=== PATIENT | female | born 1955 | race Caucasian/White ===

== ENCOUNTER 2019-07-24 04:24 | Inpatient (IN) | payer BC, MEDICAID ==
[~2019-07-24] VITALS: Ht 167.6 cm; Wt 99.8 kg
[2019-07-24] MEDS ORDERED: ONDANSETRON HCL/PF 4 MG/2 ML VIAL IVP ONE (04:30)
[2019-07-24] MEDS ORDERED: IV NS 0.9% 1,000 ML BAG IV ONE ×3 (04:30→10:30)
--- NOTE | 2019-07-24 04:30 | NUR ---
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 PT STATED THAT SHE DIDN'T "FEEL WELL ALL DAY". PT'S RESP ARE EVEN AND UNLABORED. PT APPEARS TIRED AND IS PALE WITH FLUSHED CHEEKS. PT IS ON THE MONITOR AND CONTINUOUS PULSE OX.
[2019-07-24] MEDS ORDERED: ONDANSETRON HCL/PF 4 MG/2 ML VIAL ONE ×2 (04:33→09:29)
--- NOTE | 2019-07-24 04:35 | NUR ---
BLOOD FLOW IS TOO SLOW FOR DRAW FROM IV SITE. LAB CALLED FOR BLOOD DRAW.
--- NOTE | 2019-07-24 04:35 | NUR ---
20G IV STARTED IN LT HAND
--- NOTE | 2019-07-24 05:13 | NUR ---
DESIREE BOTTOM CAGER, ARRIVED TO TAKE PT TO CT. PT TO GO TO CT ONCE BLOOD HAS BEEN DRAWN.
--- NOTE | 2019-07-24 05:13 | NUR ---
THERAPY COORDINATOR IS AT THE BEDSIDE FOR BLOOD DRAW.
[2019-07-24] MEDS ORDERED: METOCLOPRAMIDE HCL 10 MG/2 ML VIAL ONE (05:17)
[2019-07-24 05:19] LABS: CALCIUM, SERUM 9.1 mg/dL (8.5-10.1); CARBON DIOXIDE 28 mmol/L (21-32); CHLORIDE 105 mmol/L (98-107); CREATININE 0.9 mg/dL (0.6-1.3); GLUCOSE 104 mg/dL (74-106); SODIUM SERUM 141 mmol/L (136-145); UREA NITROGEN, BLOOD 19 mg/dL (7-18)
[2019-07-24 05:26] LABS: ALANINE AMINOTRANSFERASE 24 U/L (12-78); ALBUMIN 3.2 g/dL (3.4-5.0); ALKALINE PHOSPHATASE 97 U/L (46-116); ASPARTATE AMINOTRANSFERASE 16 U/L (15-37); BILIRUBIN,DIRECT 0.1 mg/dL (0.0-0.2); BILIRUBIN,TOTAL 0.5 mg/dL (0.2-1.0); LIPASE 117 U/L (73-393); TOTAL PROTEIN, SERUM 6.3 g/dL (6.4-8.2)
--- NOTE | 2019-07-24 05:26 | NUR ---
FUNDRAISING CONSULTANT IS NOT ABLE TO DRAW THE BLOOD AT THIS TIME. RADIOLOGY WAS CALLED AND PT WILL GO TO CT.
[2019-07-24] MEDS ORDERED: METOCLOPRAMIDE HCL 10 MG/2 ML VIAL IV ONE (05:30)
--- NOTE | 2019-07-24 05:30 | NUR ---
PT LEFT FOR CT.
--- NOTE | 2019-07-24 05:37 | NUR ---
PT RETURNED FROM CT.
--- NOTE | 2019-07-24 05:40 | NUR ---
TRIED TO DRAW BLOOD. WAS ONLY ABLE TO OBTAIN A RED AND YELLOW TOP.
[2019-07-24 05:52] LABS: BASOPHILS % (AUTO) 0.2 % (0.0-2.0); EOSINOPHILS % (AUTO) 0.5 % (0.0-6.0); HEMATOCRIT 43 % (33-45); HEMOGLOBIN 13.6 g/dL (11.5-14.8); LYMPHOCYTES # (AUTO) 0.8 /CMM (0.8-4.8); LYMPHOCYTES % (AUTO) 6.1 % (20.0-44.0); MEAN CORPUSCULAR HGB CONC 32 g/dl (31.0-36.0); MEAN CORPUSCULAR VOLUME 89 fL (82-100); MONOCYTES # (AUTO) 0.5 /CMM (0.1-1.30); MONOCYTES % (AUTO) 3.9 % (2.0-12.0); NEUTROPHILS # (AUTO) 12.2 /CMM (1.8-8.9); NEUTROPHILS % (AUTO) 89.3 % (43.0-81.0); PLATELET COUNT (AUTO) 272 /CMM (150-450); RED BLOOD CELL COUNT(AUTO) 4.85 MIL/uL (4.0-5.2); WHITE BLOOD COUNT (AUTO) 13.6 K/uL (4.3-11.0)
--- NOTE | 2019-07-24 05:52 | NUR ---
PT AMBULATED TO THE BATHROOM WITH A SLOW STEADY GAIT. PT WILL TRY AND GIVE A URINE SAMPLE. PT STATED THAT SHE IS HAVING DIARRHEA.
--- NOTE | 2019-07-24 05:55 | NUR ---
PT WAS UNABLE TO GIVE A URINE SAMPLE. PT ONLY HAD DIARRHEA. PT AMBULATED BACK TO ER 3 AND WAS RECONNECTED TO THE MONITOR AND CONTINUOUS PULSE OX.
--- NOTE | 2019-07-24 05:57 | NUR ---
BLOOD DRAW ATTEMPT DONE AND BLUE TOP ACQUIRED. SAMPLE SENT TO LAB. NO FURTHER DRAW NEEDED.
--- NOTE | 2019-07-24 06:00 | NUR ---
PT C/O FEELING NAUSEOUS. PT STARTED TO VOMIT. APPROX 250 ML EMESIS NOTED IN EMESIS BAG. PT IS CONTINUALLY APPOLOGIZING FOR VOMITTING. PT STATED THAT SHE FEELS MISERABLE. PT IS ON THE MONITOR AND CONTINUOUS PULSE OX.
[2019-07-24] MEDS ORDERED: LORAZEPAM INJ 2 MG/ML VIAL ONE (06:03)
--- NOTE | 2019-07-24 06:04 | NUR ---
PT REC'D ATIVAN ORDERED.
--- NOTE | 2019-07-24 06:22 | NUR ---
DR CHRISTIANSON IS AT THE BEDSIDE SPEAKING TO THE PT.
--- NOTE | 2019-07-24 06:26 | NUR ---
MD WAS AT PT'S BEDSIDE. RECEIVED VERBAL ORDER TO GIVEN ANOTHER LITER OF NS BOLUS X 1. NOTED AND CARRIED OUT
[2019-07-24] MEDS ORDERED: LORAZEPAM INJ 2 MG/ML VIAL IV ONE (06:30)
--- NOTE | 2019-07-24 07:02 | NUR ---
TRIED TO SEE IF PT COULD GIVE A URINE SAMPLE, BUT PT WAS UNABLE. PT TRIED TO SIT UP IN BED AND FELT LIGHTHEADED. PT IS C/O BACK PAIN WITH THE POSITION THAT SHE IS LYING IN ON THE GURNEY. PT WAS ADJUSTED IN BED. PT REFUSED AN IN AND OUT CATH. MADE AWARE.
--- NOTE | 2019-07-24 07:20 | NUR ---
REPORT TO WILDER CASTANEDA FOR J[facility].
--- NOTE | 2019-07-24 07:58 | NUR ---
pt still c/o being dizzy. unable to provide urine sample. dr barragan aware.
[2019-07-24 08:33] LABS: APPEARANCE,URINE Clear (CLEAR); BACTERIA,URINE None seen /HPF (None Seen); BILIRUBIN,URINE Negative (NEGATIVE); BLOOD, URINE Trace-intact Ery/uL (NEGATIVE); COLOR,URINE Yellow (YELLOW); KETONES,URINE Negative (NEGATIVE); LEUKOCYTE ESTERASE ,URINE Negative (NEGATIVE); NITRITE, URINE Negative (NEGATIVE); PH,URINE 5.5 (5.0-8.0); PROTEIN,URINE Negative (NEGATIVE); RBC,URINE 0-2 /HPF (0-2); SQUAMOUS EPITHELIAL CELL,UR Few /HPF (None Seen); UGLUCOSE Negative (NEGATIVE); UROBILINOGEN,URINE 0.2 EU/dL (0.2); WBC,URINE 0-2 /HPF (0-3)
--- NOTE | 2019-07-24 09:34 | NUR ---
dr barragan back at bedside talking to patient and family about plan of care. pt provided w/ juice, zofran 4mg given ivp per ermd verbal order.
[2019-07-24] MEDS ORDERED: ONDANSETRON HCL/PF - ER 4 MG/2 ML VIAL IV ONE (10:00)
--- NOTE | 2019-07-24 10:25 | NUR ---
CALLED NURSING SUP FOR TELE BED.
[2019-07-24] MEDS ORDERED: IBUP-1955 PO (10:42)
[2019-07-24] MEDS ORDERED: PRED5TAB PO (10:42)
[2019-07-24] MEDS ORDERED: OMEP20CA15 PO (10:42)
--- NOTE | 2019-07-24 10:43 | NUR ---
NURSING SUP GAVE TELE BED [id number].
--- NOTE | 2019-07-24 10:44 | NUR ---
PAGED [facility].
--- NOTE | 2019-07-24 10:56 | NUR ---
report given to alonzo hodge. awaiting transfer to floor.
[2019-07-24] MEDS ORDERED: MAGNESIUM HYDROXIDE 30 ML UDC PO PRN (11:00)
[2019-07-24] MEDS ORDERED: MAG HYDROX/AL HYDROX/SIMETH 30 ML UDC PO PRN (11:00)
[2019-07-24] MEDS ORDERED: ACETAMINOPHEN 325 MG TABLET PO PRN (11:00)
[2019-07-24] MEDS ORDERED: ONDANSETRON HCL/PF 4 MG/2 ML VIAL IVP PRN (11:00)
[2019-07-24] MEDS ORDERED: MORPHINE SULFATE INJ 2 MG/ML DISP.SYRIN IV PRN (11:00)
[2019-07-24] MEDS ORDERED: Z GUARD REMEDY 2 OZ OINT TP PRN (11:00)
--- NOTE | 2019-07-24 11:05 | NUR ---
M/S RN NOTES PATIENT ARRIVED TO THE UNIT WITH SON AT BEDSIDE. PATIENT ALERT AND ORIENTED X4, REPORT RECEIVED FROM TONYA. PATIENT IN NO RESPIRATORY DISTRESS, NO C/O PAIN AT THIS TIME. PATIENT COMPLAINING OF NAUSEA. PATIENT HAD EPISODE OF DIARRHEA. PATIENT CLEANED AND DRY. SKIN ASSESSED, NO SKIN BREAKDOWN. PATIENT'S IV ON THE LEFT HAND #20G, NS INFUSING AT 100ML/HR. PATIENT'S NEEDS ATTENDED, BED ON LOWEST LOCKED POSITION, CALL LIGHT WITHIN REACH, WILL CONTINUE TO MONITOR.
[2019-07-24] MEDS: IV NS 0.9% 1,000 ML IV SCH (11:34)
[2019-07-24 14:00] VITALS: BP 127/76
[2019-07-24 16:26] VITALS: BP 129/72
--- NOTE | 2019-07-24 17:00 | NUR ---
M/S RN NOTES TERE FROM LAB REPORTED CRITICAL VALUE, LACTIC ACID 3.1, NOTIFIED MD, AWAITING FOR ORDERS. ALSO PATIENT WITH EPISODE OF LOOSE STOOL X2. ALSO NOTIFIED .
--- NOTE | 2019-07-24 19:30 | NUR ---
M/S RN NOTES PATIENT AWAKE IN BED, FAMILY AT BEDSIDE. NO RESPIRATORY DISTRESS, NO C/O PAIN AT THIS TIME. NO C/O OF NAUSEA/VOMITING. PATIENT'S IV OF NS INFUSING AT 100ML/HR. PATIENT'S NEEDS ATTENDED, BED ON LOWEST LOCKED POSITION, CALL LIGHT WITHIN REACH. WILL ENDORSE TO ONCOMING NURSE.
--- NOTE | 2019-07-24 19:58 | NUR ---
RECEIVED A CRITICAL LACTIC ACID RESULT=2.0. INFORMED DR CAO, NO ORDERS MADE.
[2019-07-24 20:00] VITALS: BP 113/64
[2019-07-25] MEDS: IV NS 0.9% 1,000 ML IV SCH ×2 (03:03→07:00)
--- NOTE | 2019-07-25 06:23 | NUR ---
MS RN CLOSING NOTES: PATIENT IS RESTING IN BED, A/O X4. NO SOB NOTED. AMBULATORY. NO COMPLAIN OF PAIN. NO BM DURING THE SHIFT. NO N/V NOTED. RESTED THROUGHOUT THE NIGHT. CALL LIGHT WITHIN REACH. BED IN LOWEST AND LOCKED POSITION. VITALS STABLE.
[2019-07-25 07:06] LABS: BASOPHILS % (AUTO) 0.4 % (0.0-2.0); EOSINOPHILS % (AUTO) 0.9 % (0.0-6.0); HEMATOCRIT 38 % (33-45); HEMOGLOBIN 12.7 g/dL (11.5-14.8); MEAN CORPUSCULAR HGB CONC 33 g/dl (31.0-36.0); MEAN CORPUSCULAR VOLUME 87 fL (82-100); MONOCYTES # (AUTO) 0.5 /CMM (0.1-1.30); NEUTROPHILS # (AUTO) 3.5 /CMM (1.8-8.9); NEUTROPHILS % (AUTO) 69.7 % (43.0-81.0); PLATELET COUNT (AUTO) 244 /CMM (150-450); RED BLOOD CELL COUNT(AUTO) 4.39 MIL/uL (4.0-5.2); WHITE BLOOD COUNT (AUTO) 5.1 K/uL (4.3-11.0)
[2019-07-25 07:32] LABS: CALCIUM, SERUM 8.1 mg/dL (8.5-10.1); CREATININE 0.9 mg/dL (0.6-1.3); MAGNESIUM 1.9 mg/dL (1.8-2.4); PHOSPHORUS 2.4 mg/dL (2.5-4.9); POTASSIUM 3.7 mmol/L (3.5-5.1)
[2019-07-25 08:00] VITALS: BP_SYST 123
--- NOTE | 2019-07-25 08:00 | NUR ---
MS RN OPENING NOTES Received Patient awake and resting in bed. A/O x 4. Patient in stable condition. Breathing even and unlabored on room air with no respiratory distress. Denies pain. No signs and symptoms of pain. 20g PIV on left hand, clean, intact, patent, and flushing well with NS infusing at 100ml/hr. Safety precautions in place. Bed locked and set to lowest position with side rails x 2 up. All needs rendered at this time. Call light within reach. Will continue to monitor.
[2019-07-25] MEDS ORDERED: K PHOS NEUTRAL 250 MG TABLET PO ONE (09:00)
--- NOTE | 2019-07-25 11:41 | NUR ---
MS CONSULTING NETWORKING ENGINEER NOTES Patient discharged for home at this time. A/O x 4. VS stable with no acute distress. Breathing even and unlabored on room air with no respiratory distress. Denies pain. Skin intact. Medication reconciliation and discharge orders reviewed and explained to Patient and son. Patient and son verbalized understanding. All belongings with Patient. Patient will follow up with primary MD in 1 week. Escorted Patient to the lobby for safety. Patient picked up by sonWesley.
== END 2019-07-25 11:40 | disposition home or self-care (01) | DRG 392 ==
LOC: ER 04:25 → TELE 10:51 → MED 11:15
PROVIDERS: ADMIT Internal Medicine; ATTEND Nurse Practitioner Acute Care
DX: A08.4 Viral intestinal infection, unspecified (principal); E44.1 Mild protein-calorie malnutrition; E87.2 Acidosis; F41.9 Anxiety disorder, unspecified; K21.9 Gastro-esophageal reflux disease without esophagitis; M19.90 Unspecified osteoarthritis, unspecified site; M54.30 Sciatica, unspecified side; M35.3 Polymyalgia rheumatica; Z79.899 Other long term (current) drug therapy; D72.829 Elevated white blood cell count, unspecified; E83.39 Other disorders of phosphorus metabolism
CPT/HCPCS: 36415; 80048-TC; 80076-TC; 81000-TC; 82962-TC; 83605-TC; 83690-TC; 83735-TC; 84100-TC; 84484-TC; 85025-TC; 85730-TC; 87081-TC; A4216; G0378; J2060; J2405; J2765; J7030